=== PATIENT | female | born 1990 | race Asian ===

== ENCOUNTER 2019-12-15 13:49 | Emergency (ER) | payer SELFPAY ==
[~2019-12-15] VITALS: Ht 149.9 cm; Wt 41.7 kg
[2019-12-15 13:50] VITALS: BP 133/93
--- NOTE | 2019-12-15 13:50 | NUR ---
BIB SELF C/O COUGH FOR 2 DAYS MUCH WORSE TODAY. TO ER 3, HOOKED TO MONITOR AND POX, AWAITING MD BETANCUR. KEPT WARM AND COMFORTABLE
--- NOTE | 2019-12-15 13:55 | NUR ---
CASK MAKER DEGRASSE AT BEDSIDE
--- NOTE | 2019-12-15 14:09 | NUR ---
RAPID FLU SWAB SENT TO LAB
--- NOTE | 2019-12-15 14:15 | NUR ---
THROAT SWAB SENT TO LAB
--- NOTE | 2019-12-15 15:06 | NUR ---
Patient discharged to home in stable condition. Written and verbal after care instructions given. Patient verbalizes understanding of instruction.
== END 2019-12-15 15:07 | disposition home or self-care (01) ==
LOC: ER 13:49
DX: J40 Bronchitis, not specified as acute or chronic (principal)
CPT/HCPCS: 71045-TC; 86403-TC; 87070-TC